=== PATIENT | female | born 1980 | race Caucasian/White ===

== ENCOUNTER 2019-05-16 02:46 | Emergency (ER) | payer MEDICAID ==
[~2019-05-16] VITALS: Ht 160 cm; Wt 79.8 kg
--- NOTE | 2019-05-16 02:49 | NUR ---
PT AMBULATED TO ER BED 6
[2019-05-16 02:53] VITALS: BP 146/91
--- NOTE | 2019-05-16 03:04 | NUR ---
38 Y/O FEMALE C/O BIB SELF C/O OF SHORTNESS OF BREATH AND SORE THROAT SINCE WEDNESDAY (05/13/19). PT. A/OX3 AND FOLLOWS COMMANDS. PATIENT IS IN NO DISTRESS AT THIS TIME. BREATHING IS UNLABORED AND LUNG SOUNDS ARE CLEAR BILATERALLY (ANTERIOR/POSTERIOR). THROAT PAIN IS AN ACUTE /10. RR 17; SPO2 IS 95 ON ROOM AIR. PATIENT STATES THAT SHE TENDS TO HAVE NAUSEA WHEN SHE COUGHS. COUGH IS PRODUCTIVE NOTING YELLOW SPUTUM. MUCOUS MEMBRANES ARE PINK AND MOIST. ERMD MADE AWARE OF STATUS AND PLACED ON MONITOR. SIDE RAILS X1. DAUGHTER AT BEDSIDE. WILL CONTINUE TO MONITOR. HX:HYPOTHYROIDISM RX:THYROID MEDS NKDA
--- NOTE | 2019-05-16 03:14 | NUR ---
DR. HURTADO BEDSIDE EVALUATING PT
[2019-05-16] MEDS ORDERED: ACETAMIN/CODEINE 120/12MG-5ML 5 ML UDC PO ONE (03:20)
[2019-05-16] MEDS ORDERED: KETOROLAC 30 MG/ML VIAL IM ONE (03:20)
--- NOTE | 2019-05-16 03:39 | NUR ---
RAD AT BEDSIDE.
--- NOTE | 2019-05-16 04:03 | NUR ---
Patient discharged with v/s stable. Written and verbal after care instructions given and explained. Patient alert, oriented and verbalized understanding of instructions. Ambulatory with steady gait. All questions addressed prior to discharge. ID band removed. Patient advised to follow up with PMD. Rx of GUAIATUSSIN AC 10ML; AND NAPROSYN 500MG given. Patient educated on indication of medication including possible reaction and side effects. Opportunity to ask questions provided and answered.
[2019-05-16 04:04] VITALS: BP 138/87
== END 2019-05-16 04:03 | disposition home or self-care (01) ==
LOC: MED 02:46
DX: J20.9 Acute bronchitis, unspecified (principal); E03.9 Hypothyroidism, unspecified
CPT/HCPCS: 71045; 96372; 99283; J1885; Q0092